=== PATIENT | male | born 1975 | race Caucasian/White ===

== ENCOUNTER 2018-11-15 05:49 | Observation (INO) | payer OTHER ==
[2018-11-14 09:11] LABS: BASOPHILS # (AUTO) 0.1 (0.0-0.1); BASOPHILS % 1.6 % (0.0-1.0); EOSINOPHILS # (AUTO) 0.1 (0.0-0.4); EOSINOPHILS % 1.5 % (0.0-6.0); HEMATOCRIT 44.6 % (38.2-49.6); HEMOGLOBIN 15.3 g/dL (14.0-18.0); LYMPHOCYTES # (AUTO) 1.3 (1.0-3.2); LYMPHOCYTES % 23.7 % (18.0-39.1); MEAN CORPUSCULAR HEMOGLOBIN 31.4 pg (28-32); MEAN CORPUSCULAR HGB CONC 34.3 g/dL (31-35); MEAN CORPUSCULAR VOLUME 91.6 fL (81-99); MONOCYTES # (AUTO) 0.4 (0.2-0.8); MONOCYTES % 7.3 % (4.4-11.3); NEUTROPHILS # (AUTO) 3.6 (2.1-6.9); NEUTROPHILS % 65.5 % (38.7-80.0); PLATELET COUNT 252 x10e3/uL (140-360); RED BLOOD COUNT 4.87 x10e6/uL (4.3-5.7); RED CELL DISTRIBUTION WIDTH 11.6 % (11.7-14.4)
[2018-11-14 09:23] LABS: INR 0.9; PARTIAL THROMBOPLASTIN TIME 31.3 seconds (23.8-35.5); PROTHROMBIN TIME 12.6 seconds (11.9-14.5)
[2018-11-14 09:30] LABS: BLOOD UREA NITROGEN 19 mg/dL (7-26); BUN/CREATININE RATIO 20 (6-25); CALCIUM 10.4 mg/dL (8.4-10.2); CARBON DIOXIDE 30 mmol/L (22-29); CHLORIDE 102 mmol/L (98-107); CREATININE, SERUM 0.95 mg/dL (0.72-1.25); EST GLOMERULAR FILTRATION RATE > 60 ML/MIN (60-); GLUCOSE 84 mg/dL (74-118); SODIUM 140 mmol/L (136-145)
--- NOTE | 2018-11-14 10:09 | Diagnostic Imaging Report ---
EXAM: CHEST 2 VIEWS, PA and lateral DATE: 11/14/2018 Time stamp on exam: 9:20 AM INDICATION: Preoperative for spine surgery. COMPARISON: None FINDINGS: LINES/TUBES: None LUNGS: No consolidations or edema. PLEURA: No effusions or pneumothorax. HEART AND MEDIASTINUM: Normal size and contour. BONES AND SOFT TISSUES: No acute findings. IMPRESSION: No acute thoracic abnormality. Signed by: Dr. Axel Hutchinson DO on 11/14/2018 10:05 AM
[~2018-11-15] VITALS: Ht 170.2 cm; Wt 70.3 kg
[2018-11-15] VITALS (7 sets, daily range): BP systolic 127–142; BP diastolic 67–85
[~2018-11-15 05:49] MED LIST: FISH OIL 1,0001 EAC2 PO; MEN'S DAILY FO1 EACH PO; NAPROXEN250 MG PO
--- OUTSIDE RECORDS SUMMARY | 2018-11-15 05:52 | XMS REPORT ---
Author Author Jovan Greene Organization [employer] Address Unknown Phone Unavailable Care Team Providers Care Wrapper Off Name Role Phone Jovan Greene CP Unavailable Encounters Encounter Location Date cough,fever Jovan Greene MD Jul 24, 2014 Tongue Jovan Greene MD Jul 29, 2014 liver ck, refill allergy nasal spray Jovan Greene MD September 17, 2014 Test results Jovan Greene MD September 19, 2014 physical Jovan Greene MD Jul 10, 2014 Clinical Advice During Business Hours Jovan Greene MD Jun 18, 2015 Test results Jovan Greene MD Jul 14, 2014 when to f/u for cholesterol and liver tests? Jovan Greene MD Jul 18, 2014 Test results Jovan Greene MD Jun 16, 2015 swollen lymph node behind ear,pus coming out Jovan Greene MD Apr 09, 2015 flu vaccine Jovan Greene MD May 06, 2015 Problems Problem Type Condition ICD-9 Code Onset Dates Condition Status Problem Seasonal allergies J30.2 Active Problem Genital herpes A60.00 Active Problem Hypercholesterolemia E78.0 Active Social History Social History Element Qualifiers Date Reported Tobacco Use: . Are you a: former smoker social smoker in college, How long has it been since you last smoked? 5-10 years May 06, 2015 Marital Status: . May 06, 2015 Do you drink alcohol? . 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
--- OUTSIDE RECORDS SUMMARY | 2018-11-15 05:52 | XMS REPORT ---
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
--- OUTSIDE RECORDS SUMMARY | 2018-11-15 05:52 | XMS REPORT ---
Author Author Jovan Greene Organization [employer] Address Unknown Phone Unavailable Care Team Providers Care Oil Well Services Supervisor Name Role Phone Jovan Greene CP Unavailable Allergies, Adverse Reactions, Alerts Substance Reaction Event Type N.K.D.A. Info Not Available Non Drug Allergy Problems Problem Type Condition Code Onset Dates Condition Status Problem Seasonal allergies J30.2 Active Problem Genital herpes A60.00 Active Problem Hypercholesterolemia E78.00 Active Assessment Seasonal allergies J30.2 Active Assessment BMI 24.0-24.9, adult Z68.24 Active Assessment Nausea and vomiting in adult R11.2 Active Medications Medication Code System Code Instructions Start Date End Date Status Dosage Zofran ND 89702077104 4 mg Orally every 6 hours Jul 18, 2018 Active 1 tablet Acyclovir ND 20449708250 400 MG Orally Twice a day, PRN Active 1 tablet Vital Signs Date/Time: Jul 18, 2018 BMI 24.32 Index Weight 153 lbs Height 66.5 in Temperature 97.7 F Cardiac Monitoring Heart Rate 76 /min Blood Pressure Diastolic 78 mm Hg Blood Pressure Systolic 116 mm Hg Results No Known Results Summary Purpose [employer] Submission
--- OUTSIDE RECORDS SUMMARY | 2018-11-15 05:52 | XMS REPORT | Summary of Care ---
Author Author [facility] Organization [facility] Address Unknown Phone Unavailable Encounter HQ Encntr_alias(FIN) [id number] Date(s): 10/13/18 - 10/13/18 [facility] [address] [place] [phone] Discharge Disposition: Home or Self Care Attending Physician: Lashay De Luna MD Vital Signs No data available for this section Problem List No data available for this section Allergies, Adverse Reactions, Alerts No data available for this section Medications No data available for this section Results No data available for this section Immunizations No data available for this section Procedures No data available for this section Social History No data available for this section Assessment and Plan No data available for this section
--- OUTSIDE RECORDS SUMMARY | 2018-11-15 05:52 | XMS REPORT ---
Author Jovan Mariano Organization [employer] Address Unknown Phone Unavailable Care Team Providers Care Medical Device Assembler Name Role Phone Jovan Greene CP Unavailable Encounters Encounter Location Date cough,fever Jovan Greene MD Jul 24, 2014 Tongue Jovan Greene MD Jul 29, 2014 liver ck, refill allergy nasal spray oJvan Greene MD September 17, 2014 Test results Jovan Greene MD September 19, 2014 physical Jovan Greene MD Jul 10, 2014 Test results Jovan Greene MD Jul 14, 2014 when to f/u for cholesterol and liver tests? 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
--- OUTSIDE RECORDS SUMMARY | 2018-11-15 05:52 | XMS REPORT ---
Author Jovan Mariano Organization [employer] Address Unknown Phone Unavailable Care Team Providers Care Manager Sap Name Role Phone Jovan Greene CP Unavailable Allergies, Adverse Reactions, Alerts Substance Reaction Event Type N.K.D.A. Info Not Available Non Drug Allergy Problems Problem Type Condition Code Onset Dates Condition Status Problem Seasonal allergies J30.2 Active Problem Genital herpes A60.00 Active Problem Hypercholesterolemia E78.00 Active Assessment Reactive airway disease that is not asthma R09.89 Active Medications Medication Code System Code Instructions Start Date End Date Status Dosage Acyclovir [facility] [address]-26 400 MG Orally Twice a day, PRN Active 1 tablet ProAir HFA [facility] [address]-01 108 (90 Base) MCG/ACT Inhalation every 4-6 hours p.r.n. wheezing October 03, 2016 Active 2 puffs Ibuprofen [facility] [address]-73 200 MG Orally every 6 hrs Active 1 tablet as needed Dymista [facility] [address]-84 137-50 MCG/ACT Nasally Twice a day prn Active 1 puff in each nostril Qvar [facility] [address]-17 80 MCG/ACT Inhalation Twice a day October 03, 2016 November 02, 2016 Active 1 puff Vital Signs Date/Time: October 03, 2016 BMI 25.75 Index Weight 162 lbs Height 66.5 in Temperature 98.1 F Blood Pressure Diastolic 76 mm Hg Blood Pressure Systolic 118 mm Hg Results No Known Results Summary Purpose [employer] Submission
--- OUTSIDE RECORDS SUMMARY | 2018-11-15 05:52 | XMS REPORT ---
Author Jovan Mariano Organization [employer] Address Unknown Phone Unavailable Care Team Providers Care Photo Lab Technician Name Role Phone RamonaJovan CP Unavailable Allergies, Adverse Reactions, Alerts Substance Reaction Event Type N.K.D.A. Info Not Available Non Drug Allergy Encounters Encounter Location Date cough,fever Jovan Greene [...] tests? Jovan Greene MD Jul 18, 2014 swollen lymph node behind ear,pus coming out Jovan Greene MD Apr 09, 2015 flu vaccine Jovan Greene MD May 06, 2015 Problems Problem Type Condition ICD-9 Code Onset Dates Condition Status Assessment Melena K92.1 Active Problem Seasonal allergies J30.2 Active Problem Genital herpes A60.00 Active Problem Hypercholesterolemia E78.0 Active Assessment Hypercholesterolemia E78.0 Active Assessment Liver enzyme elevation R74.8 Active Assessment Encounter for genetic counseling Z31.5 Active Assessment Influenza vaccine administered Z23 Active Medications Medication Code System Code Instructions Start Date End Date Status Dosage Dymista [facility] [address]-62 137-50 MCG/ACT Nasally Twice a day prn Active 1 puff in each nostril Acyclovir [facility] [address]-49 400 MG Orally Twice a day, PRN Active 1 tablet Social History Social History Element Qualifiers Date Reported Tobacco Use: . Are you a: former smoker social smoker in college, How long has it been since you last smoked? 5-10 years May 06, 2015 Marital Status: . May 06, 2015 Do you drink alcohol? . 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
--- OUTSIDE RECORDS SUMMARY | 2018-11-15 05:52 | XMS REPORT ---
Author Author [facility] Address Unknown Phone Unavailable Care Team Providers Care Cartographic Technician Name Role Phone IVANA HESS Unavailable Unavailable Problems This patient has no known problems. Allergies, Adverse Reactions, Alerts This patient has no known allergies or adverse reactions. Medications This patient has no known medications. Encounters Start Date/Time End Date/Time Encounter Type Admission Type Attending [facility] Facility Care Department Encounter ID 2018-10-13 09:56:00 Outpatient [facility] [id number] 2018-10-13 09:51:00 2018-10-13 09:51:00 Outpatient [facility] [id number] Results Test Description Test Time Test Comments Text Results Atomic Results Result Comments CHEST 2 VIEWS 2018-11-14 10:05:00 [place] [address] Patient Name: ANTONIA PALOMO MR #: [id number] : 1975 Age/Sex: 42/M Req #: [id number] Adm Physician: Ordered by: IVANA HESS MD Report #: [id number] Location: OR Room/Bed: Procedure: [id number] DX/CHEST 2 VIEWS Exam Date: 11/14/18 Exam Time: 920 REPORT STATUS: Signed EXAM: CHEST 2 VIEWS, PA and lateral DATE: 11/14/[address] amp on exam: 9:20 AM INDICATION: Preoperative for spine surgery. COMPARISON: None FINDINGS: LINES/TUBES: None LUNGS: No consolidations or edema. PLEURA: No effusions or pneumothorax. HEART AND MEDIASTINUM: Normal size and contour. BONES AND SOFT TISSUES: No acute findings. IMPRESSION: No acute thoracic abnormality. Signed by: Dr. Floresita Hutchinson DO on 11/14/2018 10:05 AM Dictated By: FLORESITA HUTCHINSON DO [id number] Transcribed By: SHAQ on 11/14/18 1005 COPY TO: IVANA HESS MD
--- OUTSIDE RECORDS SUMMARY | 2018-11-15 05:52 | XMS REPORT ---
Author Author Jovan Greene Organization [employer] Address Unknown Phone Unavailable Care Team Providers Care Assistant Plant Manager Name Role Phone Jovan Greene CP Unavailable Encounters Encounter Location Date physical Jvoan Greene MD Jul 10, 2014 Test results Jovan Greene MD Jul 14, 2014 when to f/u for cholesterol and liver tests? Jovan Greene MD Jul 18, 2014 Social History Social History Element Qualifiers Date Reported Tobacco Use: . Are you a: former smoker social smoker in college, How long has it been since you last smoked? 5-10 years Jul 10, 2014 Marital Status: . Jul 10, 2014 Do you drink alcohol? . 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
--- OUTSIDE RECORDS SUMMARY | 2018-11-15 05:52 | XMS REPORT ---
Author Author Jovan Greene Organization [employer] Address Unknown Phone Unavailable Care Team Providers Care Research Physician Name Role Phone Jovan Greene CP Unavailable Allergies No Known Allergies Problems Problem Type Condition Code Onset Dates Condition Status Problem Seasonal allergies J30.2 Active Problem Genital herpes A60.00 Active Problem Hypercholesterolemia E78.00 Active Medications No Known Medications Results No Known Results Summary Purpose [employer] Submission
--- OUTSIDE RECORDS SUMMARY | 2018-11-15 05:52 | XMS REPORT ---
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
--- OUTSIDE RECORDS SUMMARY | 2018-11-15 05:52 | XMS REPORT | Summary of Care ---
Author Author [facility] Address Unknown Phone Unavailable Encounter HQ Encntr_alias(FIN) [id number] Date(s): 02/19/16 - 03/19/16 [facility] Discharge Disposition: Home or Self Care Attending Physician: Boogie Shankar MD Vital Signs No data available for [...]
--- OUTSIDE RECORDS SUMMARY | 2018-11-15 05:52 | XMS REPORT | Summary of Care ---
Author Author [facility] Organization [facility] Address Unknown Phone Unavailable Encounter HQ Encntr_alias(FIN) [id number] Date(s): 03/22/18 - 03/22/18 [facility] [address] [place] [phone] Attending Physician: Eunice Pang MD Vital Signs No data available for [...]
--- OUTSIDE RECORDS SUMMARY | 2018-11-15 05:52 | XMS REPORT ---
Author Author Jovan Greene Organization [employer] Address Unknown Phone Unavailable Care Team Providers Care Cat Dog Or Other Pet Groomer Name Role Phone Jovan Greene CP Unavailable Allergies No Known Allergies Problems Problem Type Condition Code Onset Dates Condition Status Problem Seasonal allergies J30.2 Active Problem Genital herpes A60.00 Active Problem Hypercholesterolemia E78.00 Active Assessment Immunity status testing Z01.84 Active Medications No Known Medications Results No Known Results Summary Purpose [employer] Submission
--- OUTSIDE RECORDS SUMMARY | 2018-11-15 05:52 | XMS REPORT | Continuity of Care Document ---
Author Author [facility] Interface Address Unknown Phone Unavailable Problems Problem Status Onset Date Classification Date Reported Comments Source M54.16 Active 10/13/2018 [facility] Seasonal allergies Active Problem 07/28/2018 Antonia Greene Genital herpes Active Problem 07/28/2018 Antonia Greene Hypercholesterolemia Active Problem 07/28/2018 Antonia Greene BMI 26.0-26.9,adult Active Diagnosis 09/27/2016 Antonia Greene Other viral agents as the cause of diseases classified elsewhere Active Diagnosis 09/27/2016 Antonia Greene Other specified respiratory disorders Active Diagnosis 08/17/2017 Antonia Greene BMI 24.0-24.9, adult Active Diagnosis 07/20/2018 Antonia Greene Nausea and vomiting in adult Active Diagnosis 07/20/2018 Antonia Greene Immunity status testing Active Diagnosis 11/15/2016 Antonia Greene Reactive airway disease 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 asthma Active Diagnosis 10/04/2016 Antonia Greene Dyslipidemia Active Problem 07/25/2014 Antonia Greene Seasonal allergies Active Problem 07/25/2014 Antonia Greene Genital herpes Active Problem 07/25/2014 Antonia Greene BMI 27.0-27.9,adult Active Diagnosis 07/25/2014 Antonia Greene Hypercholesterolemia Active Problem 12/05/2015 Antonia Greene Abnormal LFTs Active Problem 07/25/2014 Antonia Greene Acute bronchitis Active Diagnosis 07/25/2014 Antonia Greene Melena Active Diagnosis 05/08/2015 Antonia Greene Liver enzyme elevation Active Diagnosis 05/08/2015 Antonia Greene Encounter for genetic counseling Active Diagnosis 05/08/2015 Antonia Greene Influenza vaccine administered Active Diagnosis 05/08/2015 Antonia Greene L KNEE Active S[facility] Tammy Medications Medication Details Route Status Patient Instructions Ordering Provider Order Date Source Zofran 1 tablet Orally Active 4 mg Orally every 6 hours Rmaona 07/18/2018 Antonia Reado ProAir HFA 2 puffs Inhalation Active 108 (90 Base) MCG/ACT Inhalation every 4-6 hours p.r.n. wheezing Ramona 10/03/2016 Antonia Greene Qvar 1 puff Inhalation Active 80 MCG/ACT Inhalation Twice a day Ramona 10/03/2016 Antonia Greene Bromfed DM 5-10ml Orally Active 30-2-10 MG/5ML Orally every 6 hrs prn cough and congestion Ramona 09/26/2016 Antonia Greene Bromfed DM 5-10ml Orally Active 30-2-10 MG/5ML Orally every 6 hrs prn cough and congestion Ramona 07/24/2014 Antonia Reado Mucinex 1 tablet as needed Orally Active 600 MG Orally every 12 hrs Ramona 07/24/2014 Antonia Greene Zithromax Z-Bud 2 tablet on the first day, then 1 tablet daily for 4 days Orally Active 250 MG Orally Once a day Ramona 07/24/2014 Antonia Reado Dymista 1 puff in each nostril Nasally Active 137-50 MCG/ACT Nasally Twice a day prn Ramona Antonia Reado Mucinex DM Maximum Strength 1 tablet as needed Orally Active 60-1200 MG Orally Twice a day Ramona Antonia Reado Acyclovir 1 tablet Orally Active 400 MG Orally Twice a day, PRN Ramona Antonia Reado Ibuprofen 1 tablet as needed Orally Active 200 MG Orally every 6 hrs Ramona Antonia Reado Dymista 1 puff in each nostril Nasally Active 137-50 MCG/ACT Nasally Twice a day prn Ramona Antonia Reado Acyclovir 1 tablet Orally Active 400 MG Orally Twice a day, PRN Ramona Antonia Reado Mucinex DM 1 tablet as needed Orally Active 30-600 MG Orally every 12 hrs Ramona Antonia Lobatoin Ramona Allergies, Adverse Reactions, Alerts Substance Category Reaction Severity Reaction type Status Date Reported Comments Source N.K.D.A. Adverse Reaction Info Not Available Adverse Reaction Active 07/18/2018 Antonia Greene Immunizations Immunization Date Given Site Status Last Updated Comments Source FLU IMMUNIZATION (QUADRIVALENT) 05/06/2015 completed Antonia Greene Adacell (Tdap) 07/10/2014 completed Antonia Greene Results Order Name Results Value Reference Range Date Interpretation Comments Source Spine lumbar wo contrast MRI Spine lumbar wo contrast MRI Patient Name: ANTONIA PALOMO : 1975; Age: 42 years y/o Male MR: [id number] Study: Spine lumbar wo contrast MRI 10/23/2018 11:09 AM CDT Clinical Indication: R20.2 Paresthesia of skin Comparison: None TECHNIQUE: Multiplanar T1, T2, STIR weighted noncontrast MRI of the lumbar spine is performed. FINDINGS: ALIGNMENT AND GENERAL ASSESSMENT: This study assumes 5 lumbar type vertebral bodies. The conus medullaris terminates in a normal location and no abnormal signal identified in the lower spinal cord. No bony marrow abnormality identified about the lumbar spine. Mild disc desiccation seen at L5-S1 with the remaining lumbar discs being well-hydrated. DISC SPACES: T12-L1: Mild disc bulge. No focal herniated nucleus pulposus, neural foraminal narrowing or spinal canal stenosis. L1-L2: No focal herniated nucleus pulposus, neural foraminal narrowing or spinal canal stenosis. L2-L3: No focal herniated nucleus pulposus, neural foraminal narrowing or spinal canal stenosis. L3-L4: No focal herniated nucleus pulposus, neural foraminal narrowing or spinal canal stenosis. L4-L5: Diffuse disc bulge with broad-based central/right paracentral disc protrusion that has component of annular tear and spans 10 mm in width and 3 mm in anterior to posterior dimension. This has slight impression on the central ventral aspect of the thecal sac and causes mild posterior displacement of the right L5 nerve root. There is bilateral L4-L5 lateral recess narrowing, right greater than left. Mild to moderate bilateral L4-L5 neural foraminal narrowing. Mild concentric spinal canal stenosis. L5-S1: Slight disc bulge. No focal herniated nucleus pulposus, neural foraminal narrowing or spinal canal stenosis. IMPRESSION: 1. Diffuse disc bulge with broad-based central/right paracentral disc protrusion that has component of annular tear. Slight impression on the central ventral aspect of the thecal sac and mild posterior displacement of the right L5 nerve root. 2. Bilateral L4-L5 lateral recess narrowing, right greater than left and mild to moderate bilateral L4-L5 neural foraminal narrowing. 3. Mild concentric spinal canal stenosis L4-L5. 4. Mild disc bulge T12-L1 and slight disc bulge L5-S1. SL: CSODERSTROM- 10/23/2018 - - Read by: Will Alcaraz MD Dictated Date/time: 10/23/18 19:43 Electronically Signed by: Will Alcaraz MD 10/23/18 19:52 FINAL REPORT [facility] Spine lumbar series DX Spine lumbar series DX Study: Lumbar spine, 5 views Clinical Indication: - M54.16 Radiculopathy, lumbar region; low back pain with right leg radiculopathy Comparison: None FINDINGS: AP, lateral and oblique images were obtained. 5 lumbar type vertebra are in normal alignment. No fracture is identified. The L5-S1 intervertebral disc space is narrowed. There are tiny marginal osteophytes at L3-L4. The sacroiliac joints are unremarkable. IMPRESSION: No acute abnormality. Spondylosis as described. SL: WPFEIFFER- 10/13/2018 - - Read by: Boogie Zuniga MD Dictated Date/time: 10/13/18 16:43 Electronically Signed by: Boogie Zuniga MD 10/13/18 16:44 FINAL REPORT [facility] Vital Signs Vital Sign Value Date Comments Source Weight 153 07/18/2018 Antonia Greene Height 66.5 07/18/2018 Antonia Shailesh Ramona Temperature Oral (F) 97.7 F 07/18/2018 Antonia Shailesh Ramona Heart Rate 76 07/18/2018 Antonia Shailesh Ramona Diastolic (mm Hg) 78 07/18/2018 Antonia Shailesh Ramona Systolic (mm Hg) 116 07/18/2018 Antonia Guerrerolio Weight 162 10/03/2016 Antonia Reado Height 66.5 10/03/2016 Antonia Shailesh Ramona Temperature Oral (F) 98.1 F 10/03/2016 Antonia Shailesh Ramona Diastolic (mm Hg) 76 10/03/2016 Antonia Shailesh Ramona Systolic (mm Hg) 118 10/03/2016 Antonia Guerrerolio Weight 165 09/26/2016 Antonia Greene Height 66.5 09/26/2016 Antonia Shailesh Ramona Temperature Oral (F) 100.9 F 09/26/2016 Antonia Shailesh Ramona Heart Rate 96 09/26/2016 Antonia Greene Diastolic (mm Hg) 74 09/26/2016 nAtonia Greene Systolic (mm Hg) 112 09/26/2016 Antonia Greene Weight 170 07/24/2014 Antonia Greene Height 66.5 07/24/2014 Antonia Greene Temperature Oral (F) 98.3 F 07/24/2014 Antonia Greene Heart Rate 80 07/24/2014 Antonia Greene Diastolic (mm Hg) 90 07/24/2014 Antonia Greene Systolic (mm Hg) 140 07/24/2014 Antonia Greene Weight 170 07/10/2014 Antonia Greene Height 66.5 07/10/2014 Antonia Greene Heart Rate 76 07/10/2014 Antonia Greene Diastolic (mm Hg) 84 07/10/2014 Antonia Greene Systolic (mm Hg) 128 07/10/2014 Antonia Guerrerolio Encounters Location Location Details Encounter Type Encounter Number Reason For Visit Attending Provider ADM Date DC Date Status Source Antonia Greene MD physical [id number] 07/10/2014 07/10/2014 Antonia Greene MD physical [id number] 07/10/2014 07/10/2014 Antonia Greene MD physical [id number] 07/10/2014 07/10/2014 Antonia Greene MD physical [id number] 07/10/2014 07/10/2014 Antonia Greene MD physical [id number] 07/10/2014 07/10/2014 Antonia Greene MD physical [id number] 07/10/2014 07/10/2014 Antonia Greene MD physical [id number] 07/10/2014 07/10/2014 Antonia Greene MD physical [id number] 07/10/2014 07/10/2014 Antonia Greene MD physical [id number] 07/10/2014 07/10/2014 Antonia Greene MD Test results [id number] 07/14/2014 07/14/2014 Antonia Greene MD Test results [id number] 07/14/2014 07/14/2014 Antonia Greene MD Test results [id number] 07/15/2014 07/15/2014 Antonia Greene MD Test results [id number] 07/15/2014 07/15/2014 Antonia Greene MD Test results [id number] 07/15/2014 07/15/2014 Antonia Greene MD Test results [id number] 07/15/2014 07/15/2014 Antonia Greene MD Test results [id number] 07/15/2014 07/15/2014 Antonia Greene MD Test results [id number] 07/15/2014 07/15/2014 Antonia Greene MD when to f/u for cholesterol and liver tests? [id number] 07/18/2014 07/18/2014 Antonia Greene MD when to f/u for cholesterol and liver tests? [id number] 07/18/2014 07/18/2014 Antonia Greene MD when to f/u for cholesterol and liver tests? [id number] 07/18/2014 07/18/2014 Antonia Greene MD when to f/u for cholesterol and liver tests? [id number] 07/18/2014 07/18/2014 Antonia Greene MD when to f/u for cholesterol and liver tests? [id number] 07/18/2014 07/18/2014 Antonia Greene MD when to f/u for cholesterol and liver tests? [id number] 07/18/2014 07/18/2014 Antonia Greene MD when to f/u for cholesterol and liver tests? [id number] 07/18/2014 07/18/2014 Antonia Greene MD when to f/u for cholesterol and liver tests? [id number] 07/18/2014 07/18/2014 Antonia Greene MD cough,fever [id number] 07/24/2014 07/24/2014 Antonia Greene MD cough,fever [id number] 07/24/2014 07/24/2014 Antonia Greene MD cough,fever [id number] 07/24/2014 07/24/2014 Antonia Greene MD cough,fever [id number] 07/24/2014 07/24/2014 Antonai Greene MD cough,fever [id number] 07/24/2014 07/24/2014 Antonia Greene MD cough,fever [id number] 07/24/2014 07/24/2014 Antonia Greene MD Tongue [id number] 07/29/2014 07/29/2014 Antonia Greene MD Tongue [id number] 07/29/2014 07/29/2014 Antonia Greene MD Tongue [id number] 07/29/2014 07/29/2014 Antonia Greene MD Tongue [id number] 07/29/2014 07/29/2014 Antonia Greene MD Tongue [id number] 07/29/2014 07/29/2014 Antonia Greene MD [facility] [id number] 07/29/2014 07/29/2014 Antonia Greene MD liver ck, refill allergy nasal spray [id number] 09/17/2014 09/17/2014 Antonia Greene MD liver ck, refill allergy nasal spray [id number] 09/17/2014 09/17/2014 Antonia Greene MD liver ck, refill allergy nasal spray [id number] 09/17/2014 09/17/2014 Antonia Greene MD liver ck, refill allergy nasal spray [id number] 09/17/2014 09/17/2014 Antonia Greene MD liver ck, refill allergy nasal spray [id number] 09/17/2014 09/17/2014 Antonia Greene MD Test results [id number] 09/19/2014 09/19/2014 Antonia Greene MD Test results [id number] 09/19/2014 09/19/2014 Antonia Greene MD Test results [id number] 09/20/2014 09/20/2014 Antonia Greene MD Test results [id number] 09/20/2014 09/20/2014 Antonia Greene MD Test results [id number] 09/20/2014 09/20/2014 Antonia Greene MD swollen lymph node behind ear,pus coming out [id number] 04/09/2015 04/09/2015 Antonia Greene MD swollen lymph node behind ear,pus coming out [id number] 04/09/2015 04/09/2015 Antonia Greene MD swollen lymph node behind ear,pus coming out [id number] 04/09/2015 04/09/2015 Antonia Greene MD swollen lymph node behind ear,pus coming out [id number] 04/09/2015 04/09/2015 Antonia Greene MD swollen lymph node behind ear,pus coming out [id number] 04/09/2015 04/09/2015 Antonia Greene MD flu vaccine [id number] 05/06/2015 05/06/2015 Antonia Greene MD flu vaccine [id number] 05/06/2015 05/06/2015 Antonia Greene MD flu vaccine [id number] 05/06/2015 05/06/2015 Antonia Greene MD flu vaccine [id number] 05/06/2015 05/06/2015 Antonia Greene MD flu vaccine [id number] 05/06/2015 05/06/2015 Antonia Greene MD Test results [id number] 06/16/2015 06/16/2015 Antonia Greene MD Test results [id number] 06/16/2015 06/16/2015 Antonia Greene MD Test results [id number] 06/17/2015 06/17/2015 Antonia Greene MD Test results [id number] 06/17/2015 06/17/2015 Atnonia Greene MD Clinical Advice During Business Hours [id number] 06/18/2015 06/18/2015 Antonia Greene MD Clinical Advice During Business Hours [id number] 06/18/2015 06/18/2015 Antonia Greene MD Clinical Advice During Business Hours [id number] 06/18/2015 06/18/2015 Antonia Greene MD Needs referral [id number] 12/02/2015 12/02/2015 Antonia Greene MD Needs referral [id number] 12/02/2015 12/02/2015 Antonia Greene MD Needs referral [id number] 12/03/2015 12/03/2015 Antonia Greene [facility] OP Therapy Patients [id number] Boogie Shankar 01/14/2016 02/13/2016 S[facility] Tammy [facility] Therapy Patients [id number] Boogie Shankar 02/19/2016 03/20/2016 S[facility] Ambulatory Pre-Reg [id number] Eunice Curbow 03/22/2018 03/22/2018 [facility] Ambulatory Pre-Reg [id number] Eunice Curbow 03/22/2018 03/22/2018 [facility] Outpatient [id number] Lashay De Luna 10/13/2018 10/14/2018 [facility] Outpatient Imaging [facility] Outpt Diag Services [id number] Lashay De Luna 10/23/2018 10/24/2018 [id number] Procedures Procedure Code Date Perfomer Comments Source
--- OUTSIDE RECORDS SUMMARY | 2018-11-15 05:52 | XMS REPORT ---
Author Author Jovan Greene Organization [employer] Address Unknown Phone Unavailable Care Team Providers Care Print Production Associate Name Role Phone Jovan Greene CP Unavailable Allergies No Known Allergies Problems Problem Type Condition Code Onset Dates Condition Status Problem Seasonal allergies J30.2 Active Problem Genital herpes A60.00 Active Problem Hypercholesterolemia E78.00 Active Medications No Known Medications Results No Known Results Summary Purpose [employer] Submission
--- OUTSIDE RECORDS SUMMARY | 2018-11-15 05:52 | XMS REPORT ---
Author Author Jovan Greene Organization [employer] Address Unknown Phone Unavailable Care Team Providers Care Drug Enforcement Administration Agent Name Role Phone Jovan Greene CP Unavailable Allergies No Known Allergies Problems Problem Type Condition Code Onset Dates Condition Status Problem Seasonal allergies J30.2 Active Problem Genital herpes A60.00 Active Problem Hypercholesterolemia E78.00 Active Medications No Known Medications Results No Known Results Summary Purpose [employer] Submission
--- OUTSIDE RECORDS SUMMARY | 2018-11-15 05:52 | XMS REPORT ---
Author Jovan Mariano Organization [employer] Address Unknown Phone Unavailable Care Team Providers Care Motel Manager Name Role Phone Jovan Greene CP Unavailable Allergies, Adverse Reactions, Alerts Substance Reaction Event Type N.K.D.A. Info Not Available Non Drug Allergy Encounters Encounter Location Date cough,fever Jovan Greene MD Jul 24, 2014 Tongue Jovan Greene MD Jul 29, 2014 physical Jovan Greene MD Jul 10, 2014 Test results Jovan Greene MD Jul 14, 2014 when to f/u for cholesterol and liver tests? Jovan Greene MD Jul 18, 2014 Problems Problem Type Condition ICD-9 Code Onset Dates Condition Status Problem Dyslipidemia 272.0 Active Problem Seasonal allergies 477.9 Active Problem Abnormal LFTs 790.6 Active Assessment Abnormal LFTs 790.6 Active Assessment BMI 27.0-27.9,adult V85.23 Active Problem Genital herpes 054.10 Active Assessment Acute bronchitis 466.0 Active Medications Medication Code System Code Instructions Start Date End Date Status Dosage Ibuprofen [facility] [address]-51 200 MG Orally every 6 hrs Active 1 tablet as needed Dymista [facility] [address]-84 137-50 MCG/ACT Nasally Twice a day Active 1 puff in each nostril Bromfed DM [facility] [address]-41 30-2-10 MG/5ML Orally every 6 hrs prn cough and congestion Jul 24, 2014 Jul 31, 2014 Active 5-10ml Mucinex [facility] [address]-42 600 MG Orally every 12 hrs Jul 24, 2014 Active 1 tablet as needed Acyclovir [facility] [address]-36 400 MG Orally Twice a day Active 1 tablet Mucinex DM [facility] [address]-28 30-600 MG Orally every 12 hrs Active 1 tablet as needed Zithromax Z-Bud [facility] [address]-94 250 MG Orally Once a day Jul 24, 2014 Jul 29, 2014 Active 2 tablet on the first day, then 1 tablet daily for 4 days Social History Social History Element Qualifiers Date Reported Tobacco Use: . Are you a: former smoker social smoker in college, How long has it been since you last smoked? 5-10 years Jul 24, 2014 Marital Status: . Jul 24, 2014 Do you drink alcohol? . 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
--- OUTSIDE RECORDS SUMMARY | 2018-11-15 05:52 | XMS REPORT ---
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
--- OUTSIDE RECORDS SUMMARY | 2018-11-15 05:52 | XMS REPORT ---
Author Author Jovan Greene Organization [employer] Address Unknown Phone Unavailable Care Team Providers Care Ambulatory Care Coordinator Name Role Phone Jovan Greene CP Unavailable Allergies No Known Allergies Problems Problem Type Condition Code Onset Dates Condition Status Problem Seasonal allergies J30.2 Active Problem Genital herpes A60.00 Active Problem Hypercholesterolemia E78.00 Active Assessment Other specified respiratory disorders J98.8 Active Medications Medication Code System Code Instructions Start Date End Date Status Dosage Dymista [facility] [id number] 137-50 MCG/ACT Nasally Twice a day prn Active 1 puff in each nostril Results No Known Results Summary Purpose [employer] Submission
--- OUTSIDE RECORDS SUMMARY | 2018-11-15 05:52 | XMS REPORT ---
Author Jovan Mariano Organization [employer] Address Unknown Phone Unavailable Care Team Providers Care Waste Recycler Name Role Phone Jovan Greene CP Unavailable Allergies, Adverse Reactions, Alerts Substance Reaction Event Type N.K.D.A. Info Not Available Non Drug Allergy Problems Problem Type Condition Code Onset Dates Condition Status Problem Seasonal allergies J30.2 Active Problem Genital herpes A60.00 Active Problem Hypercholesterolemia E78.00 Active Assessment BMI 26.0-26.9,adult Z68.26 Active Assessment Other viral agents as the cause of diseases classified elsewhere B97.89 Active Assessment Other specified respiratory disorders J98.8 Active Medications Medication Code System Code Instructions Start Date End Date Status Dosage Dymista [facility] [address]-39 137-50 MCG/ACT Nasally Twice a day prn Active 1 puff in each nostril Mucinex DM Maximum Strength [facility] [address]-15 60-1200 MG Orally Twice a day Inactive 1 tablet as needed Bromfed DM [facility] [address]-28 30-2-10 MG/5ML Orally every 6 hrs prn cough and congestion September 26, 2016 October 03, 2016 Active 5-10ml Acyclovir [facility] [address]-53 400 MG Orally Twice a day, PRN Active 1 tablet Ibuprofen [facility] [address]-04 200 MG Orally every 6 hrs Active 1 tablet as needed Vital Signs Date/Time: September 26, 2016 BMI 26.23 Index Weight 165 lbs Height 66.5 in Temperature 100.9 F Cardiac Monitoring Heart Rate 96 /min Blood Pressure Diastolic 74 mm Hg Blood Pressure Systolic 112 mm Hg Results No Known Results Summary Purpose [employer] Submission
--- OUTSIDE RECORDS SUMMARY | 2018-11-15 05:52 | XMS REPORT ---
Author Author Jovan Greene Organization [employer] Address Unknown Phone Unavailable Care Team Providers Care Radiologic Technician Name Role Phone Jovan Greene CP Unavailable Allergies No Known Allergies Problems Problem Type Condition Code Onset Dates Condition Status Problem Seasonal allergies J30.2 Active Problem Genital herpes A60.00 Active Problem Hypercholesterolemia E78.00 Active Medications No Known Medications Results No Known Results Summary Purpose [employer] Submission
--- OUTSIDE RECORDS SUMMARY | 2018-11-15 05:52 | XMS REPORT ---
Author Jovan Mariano Organization [employer] Address Unknown Phone Unavailable Care Team Providers Care Chief Clerk Shelter Name Role Phone Jovan Greene CP Unavailable Allergies, Adverse Reactions, Alerts Substance Reaction Event Type N.K.D.A. Info Not Available Non Drug Allergy Encounters Encounter Location Date physical Jovan Greene MD Jul 10, 2014 Problems Problem Type Condition ICD-9 Code Onset Dates Condition Status Assessment Dyslipidemia 272.0 Active Assessment Seasonal allergies 477.9 Active Assessment Annual physical exam V70.0 Active Assessment Genital herpes 054.10 Active Assessment BMI 27.0-27.9,adult V85.23 Active Social History Social History Element Qualifiers Date Reported Tobacco Use: . Are you a: former smoker social smoker in college, How long has it been since you last smoked? 5-10 years Jul 10, 2014 Marital Status: . Jul 10, 2014 Do you drink alcohol? . 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
--- OUTSIDE RECORDS SUMMARY | 2018-11-15 05:52 | XMS REPORT | Summary of Care ---
Author Author [facility] Outpatient Imaging [facility] Outpatient Imaging [facility] Address Unknown Phone Unavailable Encounter HQ Encntr_alias(FIN) [id number] Date(s): 10/23/18 - 10/23/18 [facility] Outpatient Imaging [address] [address] Discharge Disposition: Home or Self Care Attending Physician: Lashay De Luna MD Referring Physician: Lashay De Luna MD Vital Signs [...]
--- OUTSIDE RECORDS SUMMARY | 2018-11-15 05:52 | XMS REPORT | Summary of Care ---
Author Author [facility] Organization [facility] Address Unknown Phone Unavailable Encounter HQ Encntr_alias(FIN) [id number] Date(s): 03/22/18 - 03/22/18 [facility] [address] [place] [phone] Attending Physician: Eunice Pang MD Vital Signs [...]
[2018-11-15] MEDS ORDERED: CEFAZOLIN SOD 1 GM/NS 50ML 50 ML IV ONE (06:14)
[2018-11-15] MEDS ORDERED: BACITRACIN 50,000 UNIT VIAL ONE (06:40)
[2018-11-15] MEDS ORDERED: GELATIN SPONGE 12-7MM ONE (06:40)
[2018-11-15] MEDS ORDERED: THROMBIN FOR SOLN 5,000 UNIT VIAL ONE (06:40)
[2018-11-15] MEDS ORDERED: BUPIVACAINE 0.5%/EPI 30 ML SDV INJ ONE (06:40)
[2018-11-15] MEDS ORDERED: TIZANIDINE HCL4 M1 PO (06:53)
[2018-11-15] MEDS ORDERED: ACETAMINOPHEN 1000 MG/100 ML 100 ML IV ONE (07:09)
[2018-11-15] MEDS ORDERED: ACETAMINOPHEN 325 MG TAB PO PRN (09:00)
[2018-11-15] MEDS ORDERED: HYDROMORPHONE 2MG/ML 2 MG/ML ML IV PRN (09:00)
[2018-11-15] MEDS ORDERED: PROMETHAZINE HCL (IM) 25 MG/ML VIAL IM PRN (09:00)
[2018-11-15] MEDS ORDERED: NAPROXEN 250 MG TAB PO PRN (09:00)
[2018-11-15] MEDS ORDERED: MAGNESIUM/ALUMINUM/SIMETHICONE 30 ML UDC PO PRN (09:00)
[2018-11-15] MEDS ORDERED: ONDANSETRON HCL INJ 2MG/ML 2ML 2 MG/ML VIAL IV PRN (09:00)
[2018-11-15] MEDS ORDERED: CARISOPRODOL 350 MG TAB ONE (10:11)
--- NOTE | 2018-11-15 11:29 | NUR ---
Pt arrived from PACU, resp WNL. Alert and oriented x4. IV patent, no redness or swelling to insertion site. Pain level at 4/10 per patient. Dressing CDI, to mid lower back. Bed in lowest position and call light within reach.
[2018-11-15] MEDS ORDERED: MORPHINE SULFATE INJ 10 MG/ML IM PRN (12:15)
[2018-11-15] MEDS ORDERED: NORCO 7.5-3251 EACH PO (13:16)
--- NOTE | 2018-11-15 14:14 | Operative Report ---
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 PROCEDURE: Right L4-5 laminotomy, medial facetectomy, and microsurgical diskectomy, [id number]. ANESTHESIA: General. INDICATIONS: The patient is a 42-year-old man, who presents with a right L4-5 disk herniation with L5 radiculopathy refractory to conservative treatment. He was taken to the operating room for microsurgical diskectomy. PROCEDURE IN DETAIL: After induction of general anesthesia, the patient was placed on the operating table in prone position over Jimenez frame. Lumbar region was prepped and draped in sterile fashion. A preoperative x-ray was obtained. A midline incision was created. The lumbar fascia was opened on the right of midline and a subperiosteal dissection was carried out to expose the right-sided L3 and L4 laminae and the medial aspect of the facet joint. A second x-ray confirmed correct localization. The operating microscope was brought in. A high-speed drill equipped with corey bur was used to drill the inferior aspect of the L4 lamina and the medial rim of the L4-5 facet joint. The ligamentum flavum was resected. The dural sac and the L5 nerve root were exposed. The nerve root was compressed between the herniated disk and the medial aspect of the facet joint. The nerve root was slightly retracted medially. The epidural veins were bipolar coagulated and divided with micro scissors. The posterior longitudinal ligament was incised and a subligamentous disk herniation was retrieved and removed with a micropituitary rongeur. Through the small opening in the annulus of the disk, a few fragments of loose disk were retrieved and removed from the disk space. Excellent decompression of the L5 nerve root was thus achieved. The wound was copiously irrigated with bacitracin solution. Meticulous hemostasis was secured. The retractor was removed. The lumbar fascia was closed with 0 Vicryl suture, subcutaneous layer was closed with 2-0 Vicryl sutures, and the skin was closed with 3-0 Monocryl sutures in subcuticular fashion. Steri-Strips and dressing were applied. The patient was awakened, extubated, and taken to the postanesthesia care unit in stable condition. No intraoperative complications were encountered. Estimated blood loss was 10 mL. Joe Thompson MD PP/STAR /[id number]
--- NOTE | 2018-11-15 14:15 | NUR ---
Pt ambulating down hallway with at side. Gait steady. Pt stated pain is better when walking versus laying in bed.
[2018-11-15] MEDS: CEFAZOLIN SOD 1 GM/NS 50ML 50 ML IV SCH ×2 (15:14→20:54)
[2018-11-15] MEDS: LACTATED RINGER'S 1,000 ML IV SCH ×2 (15:15→17:30)
[2018-11-15] MEDS ORDERED: FENTANYL CITRATE/PF 100MCG/2 ML INJ ONE (18:42)
[2018-11-15] MEDS ORDERED: MIDAZOLAM HCL 2 MG/2 ML VIAL ONE (18:42)
--- NOTE | 2018-11-15 19:00 | NUR ---
received report from day nurse. patient is resting in bed. patient is awake and talking. patient complains of a bit of pain in the lower back. will medicate for the pain. call ames is within reach. will continue to monitor patient.
[2018-11-15] MEDS ORDERED: DEXAMETHASONE SOD PHOS INJ 4 MG/ML VIAL ONE (19:08)
[2018-11-15] MEDS ORDERED: SEVOFLURANE INHAL SOLN 250 ML PEN BTL ONE (19:08)
[2018-11-15] MEDS ORDERED: PROPOFOL IV EMULSION 10 MG/ML 20 ML VIAL ONE (19:08)
[2018-11-15] MEDS ORDERED: LIDOCAINE HCL 2% LOCAL INJ 5 ML SDV VIAL INJ ONE (19:08)
[2018-11-15] MEDS ORDERED: ROCURONIUM BROMIDE 10 MG/ML 5ML VIAL ONE (19:08)
[2018-11-15] MEDS ORDERED: ONDANSETRON HCL INJ 2MG/ML 2ML 2 MG/ML VIAL ONE (19:08)
[2018-11-15] MEDS ORDERED: GLYCOPYRROLATE INJ 1MG/ 5 ML SYR ONE (19:08)
[2018-11-15] MEDS ORDERED: NEOSTIGMINE 5 MG/5ML SYR ONE (19:08)
[2018-11-15] MEDS: OXYCODONE/ACETAMINOPHEN 5-325 1 EACH TABLET PO PRN (20:54)
[2018-11-15] MEDS: CARISOPRODOL 350 MG TAB PO PRN (20:55)
[2018-11-15] MEDS ORDERED: ZOLPIDEM TARTRATE 5 MG TAB PO PRN (21:00)
[2018-11-16 00:34] VITALS: BP 109/55
[2018-11-16] MEDS: LACTATED RINGER'S 1,000 ML IV SCH (01:37)
[2018-11-16 04:59] VITALS: BP 117/57
[2018-11-16] MEDS: CEFAZOLIN SOD 1 GM/NS 50ML 50 ML IV SCH (05:30)
--- NOTE | 2018-11-16 06:57 | NUR ---
report given to day nurse. patient is resting in bed. bed is in lowest position and call ames is within reach. will continue to monitor patient.
--- NOTE | 2018-11-16 07:00 | NUR ---
Walking rounds done. Patient denies needing pain medication at this time. Lower back dressing intact. Patient will be discharged later this morning and is aware. He is waiting on spouse. Call ames within reach.
[2018-11-16] MEDS: OXYCODONE/ACETAMINOPHEN 5-325 1 EACH TABLET PO PRN (08:04)
[2018-11-16] MEDS: CARISOPRODOL 350 MG TAB PO PRN (08:04)
[2018-11-16 08:19] VITALS: BP 113/69
[2018-11-16] MEDS ORDERED: OMEGA 3 POLYUNSAT FATTY ACIDS 1000 MG SOFTGEL PO SCH (09:00)
[2018-11-16] MEDS ORDERED: MULTIVITAMINS/MINERALS TAB PO SCH (09:00)
== END 2018-11-16 09:39 | disposition home or self-care (01) ==
LOC: OR 05:49 → PACU V 09:00 → IMCU 11:33
PROVIDERS: ADMIT Neurological Surgery; ATTEND Neurological Surgery
DX: M51.16 Intervertebral disc disorders with radiculopathy, lumbar region (principal); Z01.810 Encounter for preprocedural cardiovascular examination; Z01.812 Encounter for preprocedural laboratory examination; Z01.811 Encounter for preprocedural respiratory examination; E78.5 Hyperlipidemia, unspecified; H35.719 Central serous chorioretinopathy, unspecified eye
CPT/HCPCS: 36415; 63047; 71046; 72020; 80048; 85025; 85610; 85730; 86850; 86900; 88304; 93005; G0378 ×2; J0131; J0690 ×2; J1100; J1170; J2001; J2250; J2405; J2704; J3490